=== PATIENT | male | born 1985 | race Caucasian/White ===

== ENCOUNTER 2021-11-05 16:13 | Observation (INO) ==
[2021-11-05 16:38] LABS: Basophils # (auto) 0.02 K/uL (0-0.2); Basophils % (auto) 0.3 %; Eosinophils # (auto) 0.39 K/uL (0-0.5); Eosinophils % (auto) 6.8 %; Hematocrit (blood only) 36.4 % (42-52); Hemoglobin 12.1 g/dL (14.0-18.0); Lymphocytes # (auto) 1.51 K/uL (1.2-3.4); Lymphocytes % (auto) 26.2 %; Mean Corpuscular Hemoglobin 28.9 pg (25-34); Mean Corpuscular Hgb Conc 33.2 g/dL (32-36); Mean Corpuscular Volume 86.9 fL (80-100); Mean Platelet Volume 10.9 fL (7.4-10.4); Monocytes # (auto) 0.56 K/uL (0.11-0.59); Monocytes % (auto) 9.7 %; Neutrophils # (auto) 3.28 K/uL (1.4-6.5); Platelet Count 224 K/uL (130-400); RDW Coefficient of Variation 13.1 % (11.5-14.5); RDW Standard Deviation 41.8 fL (36.4-46.3); Red Blood Count 4.19 M/uL (4.7-6.1); White Blood Count 5.76 K/uL (4.8-10.8)
[2021-11-05 17:11] LABS: Albumin Globulin Ratio 1.2 (0.9-2); Albumin Level 3.9 gm/dl (3.4-5.0); BUN Creatinine Ratio 20.8 (10-20); Bilirubin,Total 0.3 mg/dl (0.2-1.0); Calcium 9.2 mg/dl (8.5-10.1); Creatinine Clr Calc Pharmacy 117.4 ml/min; Est GFR (African American) 118.2 ml/min; Globulin 3.3 gm/dl (2.5-4.0); Potassium 3.9 mmol/L (3.5-5.1); Total Protein 7.2 gm/dl (6.0-8.3)
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
[2021-11-05] MEDS ORDERED: PANTOprazole 80 MG in DEXTROSE 5% 100 ML IV STA (18:07)
[2021-11-05 18:59] LABS: Influenza A virus by PCR Negative (Neg); Influenza B virus by PCR Negative (Neg); RSV by PCR Negative (Neg); SARS CoV2 RNA(COVID-19) InHosp NEGATIVE (Negative)
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
[2021-11-05] MEDS ORDERED: ONDANSETRON INJ 2 MG/ML 2 ML VIAL IV PRN (20:56)
[2021-11-05] MEDS: NICOTINE 14 MG/24 HR PATCH TD SCH (22:03)
[2021-11-05] MEDS: CALCIUM CARBONATE 500 MG CHEWABLE TAB PO SCH (22:05)
[2021-11-05] MEDS: busPIRone 5 MG TAB PO SCH (22:05)
[2021-11-05] MEDS: PANTOprazole 40 MG in SYRINGE 0 ML IV SCH (22:06)
[2021-11-05] MEDS ORDERED: LACTATED RINGER'S 1,000 ML IV ONE (22:46)
--- NOTE | 2021-11-05 23:59 | Communication Note ---
Date of Service: November 05, 2021 Made aware by RN of patient nodding off with his head going into his dinner tray. Patient room searched by security due to concerns for substance abuse. A black box containing drug paraphernalia and a bottle containing liquid medicine was found in patient's backpack per RN. Above objects given to security for safe keeping. Patient SBP 80s, pulse rate 40s as per RN. Patient wakes up when she will as per RN. 3.6-second pause noted around 12:45 AM, 11/06. Patient sleeping during event as per RN. AP One-time sinus pause Asymptomatic bradycardia Substance abuse Maintain monitor on/off unit PCU transfer and Cardiology consult if with recurrence of sinus pause Urine tox One to one nursing RN discretion Will relay to AM provider.
[2021-11-06 00:25] LABS: Lyme Ab IgG w/WB Rflx Negative (Negative); Lyme Ab IgM w/WB Rflx Negative (Negative)
[2021-11-06] MEDS: LACTATED RINGER'S 1,000 ML IV SCH ×2 (06:17→19:34)
[2021-11-06 06:53] LABS: Appearance Urine Clear (Clear); Bilirubin Urine Negative (Negative); Blood Urine Negative (Negative); Color Urine Yellow; Glucose Urine UA Negative (Negative); Ketones Urine Negative (Negative); Leukocyte Esterase Urine Negative (Negative); Nitrite Urine Negative (Negative); Protein Urine Negative (Negative); Urobilinogen Urine Negative (Negative)
[2021-11-06 07:30] LABS: Amphetamines+Metham, Urine Pos (Neg); Barbiturates, Urine Neg (Neg); Benzodiazepine, Urine Neg (Neg); Cocaine, Urine Neg (Neg); MDMA (Ecstacy), Urine Pos (Neg); Methadone, Urine Neg (Neg); Opiate, Urine Pos (Neg); Phencyclidine, Urine Neg (Neg)
[2021-11-06 08:23] LABS: Basophils # (auto) 0.02 K/uL (0-0.2); Basophils % (auto) 0.4 %; Eosinophils # (auto) 0.25 K/uL (0-0.5); Eosinophils % (auto) 5.6 %; Hematocrit (blood only) 31.1 % (42-52); Hemoglobin 10.4 g/dL (14.0-18.0); Hemoglobin 10.7 g/dL (14.0-18.0); Lymphocytes # (auto) 1.36 K/uL (1.2-3.4); Lymphocytes % (auto) 30.4 %; Mean Corpuscular Hemoglobin 28.7 pg (25-34); Mean Corpuscular Hemoglobin 29.6 pg (25-34); Mean Corpuscular Hgb Conc 34.4 g/dL (32-36); Mean Corpuscular Volume 85.9 fL (80-100); Mean Corpuscular Volume 86.1 fL (80-100); Mean Platelet Volume 10.4 fL (7.4-10.4); Mean Platelet Volume 10.5 fL (7.4-10.4); Monocytes # (auto) 0.51 K/uL (0.11-0.59); Monocytes % (auto) 11.4 %; Neutrophils # (auto) 2.33 K/uL (1.4-6.5); Neutrophils % (auto) 52.2 %; Platelet Count 187 K/uL (130-400); Platelet Count 189 K/uL (130-400); RDW Coefficient of Variation 13.1 % (11.5-14.5); RDW Standard Deviation 41.6 fL (36.4-46.3); RDW Standard Deviation 41.9 fL (36.4-46.3); Red Blood Count 3.61 M/uL (4.7-6.1); Red Blood Count 3.62 M/uL (4.7-6.1); White Blood Count 4.36 K/uL (4.8-10.8); White Blood Count 4.47 K/uL (4.8-10.8)
[2021-11-06 08:42] LABS: Mean Corpuscular Hgb Conc 33.4 g/dL (32-36)
[2021-11-06] MEDS: CALCIUM CARBONATE 500 MG CHEWABLE TAB PO SCH ×2 (08:48→20:37)
[2021-11-06] MEDS: busPIRone 5 MG TAB PO SCH ×3 (08:49→20:36)
[2021-11-06] MEDS: PANTOprazole 40 MG in SYRINGE 0 ML IV SCH ×2 (08:49→20:32)
[2021-11-06] MEDS: NICOTINE 14 MG/24 HR PATCH TD SCH (08:49)
[2021-11-06] MEDS: BUPRENORPHINE/NALOXONE 8/2 MG TAB SL SCH (08:53)
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
[2021-11-06 09:03] LABS: BUN Creatinine Ratio 17.1 (10-20); Calcium 8.4 mg/dl (8.5-10.1); Creatinine Clr Calc Pharmacy 144.7 ml/min; Est GFR (Non-African American) 118.2 ml/min; Potassium 3.2 mmol/L (3.5-5.1)
[2021-11-06] MEDS ORDERED: POTASSIUM CHLORIDE CRTAB 20 MEQ TABCR PO STA (09:13)
[2021-11-06] MEDS ORDERED: PANTOprazole 40 MG in DEXTROSE 5% 100 ML IV SCH (09:30)
--- NOTE | 2021-11-06 11:23 | Electrocardiogram Report ---
Test Reason : Blood Pressure : / mmHG Vent. Rate : 056 BPM Atrial Rate : 056 BPM P-R Int : 132 ms QRS Dur : 102 ms QT Int : 426 ms P-R-T Axes : 034 057 046 degrees QTc Int : 411 ms Sinus bradycardia Early repolarization Otherwise normal ECG No previous ECGs available Confirmed by Sher Cueto ([id number]) on 11/06/2021 11:22:29 AM Referred By: REFERRED SELF Confirmed By:Sher Cueto
--- NOTE | 2021-11-06 11:29 | Electrocardiogram Report ---
Test Reason : Blood Pressure : / mmHG Vent. Rate : 049 BPM Atrial Rate : 049 BPM P-R Int : 146 ms QRS Dur : 098 ms QT Int : 468 ms P-R-T Axes : 035 045 042 degrees QTc Int : 422 ms Sinus bradycardia Early repolarization Otherwise normal ECG When compared with ECG of 05-NOV-2021 18:06, (unconfirmed) No significant change was found Confirmed by Sher Cueto ([id number]) on 11/06/2021 11:28:41 AM Referred By: REFERRED SELF Confirmed By:Sher Cueto
--- NOTE | 2021-11-06 12:30 | History & Physical Bridge Note ---
Date of Service November 06, 2021 History & Physical Bridge Note I have examined the patient, reviewed the History & Physical and in the interval since the performance of the History & Physical I have noted the following changes of clinical significance: no changes noted. The patient is undergoing upper endoscopy today for a question of coffee-ground emesis. We have discussed the risks to include bleeding, infection, perforation, aspiration and need for follow-up studies.
[2021-11-06] MEDS ORDERED: fentaNYL citrate 100 MCG/2 ML VIAL IV PRN (12:40)
[2021-11-06] MEDS ORDERED: ONDANSETRON INJ 2 MG/ML 2 ML VIAL IV PRN (12:40)
[2021-11-06] MEDS ORDERED: ePHEDrine sulfate 50 MG/ML AMP IV PRN (12:40)
[2021-11-06] MEDS ORDERED: ATROPINE SULFATE 0.1 MG/ML 10ML SYR IV PRN (12:40)
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
[2021-11-06] MEDS ORDERED: LIDOCAINE 2% 2 ML VIAL/AMP(20MG/ML) INFIL ONE (12:59)
[2021-11-06] MEDS ORDERED: PROPOFOL IV EMULSION 10 MG/ML 20 ML VIAL IV ONE (12:59)
[2021-11-06] MEDS ORDERED: MIDAZOLAM HCL 1 MG/ML 2ML VIAL ONE (13:00)
[2021-11-06] MEDS ORDERED: KETAMINE 50 MG/5 ML SYRINGE ONE (13:00)
[2021-11-06] MEDS ORDERED: fentaNYL citrate 100 MCG/2 ML VIAL ONE (13:00)
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
--- NOTE | 2021-11-06 13:39 | Post Operative Brief Note ---
Immediate Post Op Note v1 Date of Surgery November 06, 2021 Pre & Post Diagnosis Operation Date: 11/06/21 11:40 Pre-Op Diagnosis: GI BLEED Post-Op Diagnosis: Hiatal hernia esophagitis I identified the patient and participated in the time-out.: Yes Procedure Operation Date: 11/06/21 11:40 Actual Procedures p Esophagogastroduodenoscopy(Not Applicable) - Bonifacio Garzon DO Operation Date: 11/06/21 15:30 <No data on this case meets the specified criteria> Surgeon Bonifacio Garzon DO Adjunct Instructor Of Women'S Studies none Estimated Blood Loss 0 Findings Consistent with Post-Op Diagnosis
--- NOTE | 2021-11-06 13:43 | GI REPORT ---
Patient Name: Nabil Juarez Procedure Date: 11/06/2021 12:38 PM Date of : 1985 Admit Type: Inpatient Age: 36 Gender: Male Attending MD: Bonifacio Garzon DO Procedure: Upper GI endoscopy Providers: Bonifacio Garzon DO Referring MD: Servando Chou Md Indications: Coffee-ground emesis Medicines: Monitored Anesthesia Care Complications: No immediate complications. Estimated blood loss: Minimal. Estimated Blood Loss: Estimated blood loss was minimal. Procedure: Pre-Anesthesia Assessment: - Prior to the procedure, a History and Physical was performed, and patient medications, allergies and sensitivities were reviewed. The patient's tolerance of previous anesthesia was reviewed. - The risks and benefits of the procedure and the sedation options and risks were discussed with the patient. All questions were answered and informed consent was obtained. - Patient identification and proposed procedure were verified prior to the procedure by the physician, the nurse and the supervisor core shop. The procedure was verified in the procedure room. - Pre-procedure physical examination revealed no contraindications to sedation. - ASA Grade Assessment: III - A patient with severe systemic disease. - After reviewing the risks and benefits, the patient was deemed in satisfactory condition to undergo the procedure. - The anesthesia plan was to use monitored anesthesia care (MAC). - Immediately prior to administration of medications, the patient was re-assessed for adequacy to receive sedatives. - The heart rate, respiratory rate, oxygen saturations, blood pressure, adequacy of pulmonary ventilation, and response to care were monitored throughout the procedure. - The physical status of the patient was re-assessed after the procedure. After obtaining informed consent, the endoscope was passed under direct vision. Throughout the procedure, the patient's blood pressure, pulse, and oxygen saturations were monitored continuously. The Endoscope was introduced through the mouth, and advanced to the third part of duodenum. The upper GI endoscopy was accomplished without difficulty. The patient tolerated the procedure well. Findings: LA Grade B (one or more mucosal breaks greater than 5 mm, not extending between the tops of two mucosal folds) esophagitis with no bleeding was found in the lower third of the esophagus. A medium-sized hiatal hernia was found. The proximal extent of the gastric folds (end of tubular esophagus) was 36 cm from the incisors. The hiatal narrowing was 41 cm from the incisors. The Z-line was 36 cm from the incisors. The gastric fundus, gastric body, incisura and gastric antrum were normal. The examined duodenum was normal. Impression: - LA Grade B reflux esophagitis. - Medium-sized hiatal hernia. - Normal gastric fundus, gastric body, incisura and antrum. - Normal examined duodenum. - No specimens collected. Recommendation: - Advance diet as tolerated today. - Use Protonix (pantoprazole) 40 mg PO daily. - Repeat upper endoscopy in 3 months for surveillance. Bonifacio Garzon D.O. Bonifacio Garzon, 11/06/2021 1:43:04 PM This report has been signed electronically. Note Initiated On: 11/06/2021 12:38 PM Number of Addenda: 0 I attest to the content of the Intraoperative Record and orders documented therein, exceptions below {[id number]}
--- NOTE | 2021-11-06 14:06 | Hospitalist Progress Note ---
Date of Service November 06, 2021 Assessment & Plan (1) Tobacco use: (2) Opioid abuse: (3) Anxiety and depression: (4) GERD (gastroesophageal reflux disease): (5) Epigastric abdominal pain: Plan: 36 year old male who presented to the ED with coffee ground emesis Coffee ground emesis due to reflux esophagitis- No more since admission. S/p EGD today which showed grade B reflux esophagitis but normal stomach and duodenum. GI recommendations noted. Advance diet as tolerated, PPI daily, repeat EGD in 3 months Sinus bradycardia with pause x1- resolved, in setting of substance abuse. Seen by cardio- no further testing indicated this time Substance abuse- On suboxone but UDS positive for ecstasy, amphetamine and opiates- patient denies use of ecstasy or amphetamine despite revealing his UDS. Of note, patient was found to have a black box containing drug paraphernalia and a bottle with liquid medicine, in the room overnight Tobacco abuse- cessation recommended. continue nicotine patch Anxiety/depression- continue buspirone Dispo- Likely discharge tomorrow DVT prophylaxis- sc heparin Admission and Anticipated Discharge Date Admission Date: November 05, 2021 Subjective Seen and examined at bedside. Sleeping but easily arousable. Awake alert oriented, conversing well. States no more nausea, vomiting since admission, no bleeding. States he takes opiate but denies any ecstasy or amphetamine use despite his UDS being positive, he says his opiates might have been contaminated. No fever, chills. No chest pain, light headedness or dizziness. Physical Exam Physical Exam: General: Lying comfortably in bed, not in distress, on room air HEENT: EOMI, TODD, MMM Chest: Clear breath sounds bilaterally, no wheezes or crackles CVS: Regular rate and rhythm, normal heart sounds, no murmur Abdomen: Soft, non tender, not distended, normal bowel sounds Neuro: Awake, alert, oriented, conversing well, non focal Extremities: No cyanosis, clubbing or edema Results & Data Results & Data ([facility]) Vital Signs (Past 12 Hours) Vital Signs Temp Pulse Pulse Pulse Resp BP BP 11/06/21 13:45 36.7 C 84 13 111/71 11/06/21 13:35 74 19 106/68 11/06/21 13:25 36.5 C 84 14 109/66 11/06/21 12:27 36.8 C 78 20 106/62 11/06/21 11:24 36.7 C 85 18 108/62 11/06/21 08:04 43 L 11/06/21 07:27 36.7 C 86 18 94/57 L 11/06/21 04:08 46 L 76/36 L 91/42 L 11/06/21 02:26 36.7 C 42 L 18 82/47 L Pulse Ox 11/06/21 13:45 100 11/06/21 13:35 100 11/06/21 13:25 98 11/06/21 12:27 96 11/06/21 11:24 98 11/06/21 08:04 11/06/21 07:27 97 11/06/21 04:08 11/06/21 02:26 96
--- NOTE | 2021-11-06 14:28 | Anesthesiology Progress Note ---
Date of Service November 06, 2021 Anesthesia Post Procedure Vital Signs Vital Signs: Temp Pulse Pulse Pulse Resp BP BP 11/06/21 14:00 75 21 106/67 11/06/21 13:45 98.1 F 84 13 111/71 11/06/21 13:35 74 19 106/68 11/06/21 13:25 97.7 F 84 14 109/66 11/06/21 12:27 98.2 F 78 20 106/62 11/06/21 11:24 98.1 F 85 18 108/62 11/06/21 08:04 43 L 11/06/21 07:27 98.1 F 86 18 94/57 L 11/06/21 04:08 46 L 76/36 L 11/06/21 02:26 98.1 F 42 L 18 11/06/21 00:52 45 L 11/05/21 22:46 97.9 F 46 L 18 11/05/21 21:59 97.9 F 54 L 18 11/05/21 21:21 97.9 F 54 L 20 11/05/21 20:56 60 11/05/21 20:41 59 L 16 97/59 L 11/05/21 19:55 59 L 16 11/05/21 18:14 55 L 16 11/05/21 16:16 97.7 F 69 20 98/51 L BP Pulse Ox 11/06/21 14:00 96 11/06/21 13:45 100 11/06/21 13:35 100 11/06/21 13:25 98 11/06/21 12:27 96 11/06/21 11:24 98 11/06/21 08:04 11/06/21 07:27 97 11/06/21 04:08 91/42 L 11/06/21 02:26 82/47 L 96 11/06/21 00:52 11/05/21 22:46 89/55 L 93 11/05/21 21:59 94/58 L 97 11/05/21 21:21 94/58 L 97 11/05/21 20:56 11/05/21 20:41 95 11/05/21 19:55 97/59 L 95 11/05/21 18:14 96/58 L 94 11/05/21 16:16 95 Transfer of Care Handoff Completed per policy Notes Mental Status: alert / awake / arousable and participated in evaluation Patient Amnestic to Procedure: Yes Nausea / Vomiting: adequately controlled Pain: adequately controlled Airway Patency, RR, SpO2: stable & adequate BP & HR: stable & adequate Hydration State: stable & adequate Anesthetic Complications: no major complications apparent and Pt Satisfied with anesthetic care
--- NOTE | 2021-11-06 15:05 | Communication Note ---
Date of Service: November 06, 2021 The patient underwent an upper endoscopy this afternoon. He was found to have a 5 cm hiatal hernia and evidence of esophagitis. I wonder if the coffee-ground emesis is related to drug-induced nausea and vomiting. Recommendations Protonix 40 mg 1 time daily Patient should consider abstinence from drug abuse Repeat upper endoscopy in 3 months Call with any questions or concerns GI to sign off
[2021-11-06] MEDS: HEPARIN SOD 5,000 UNIT/0.5 ML VIAL SQ SCH (20:32)
[2021-11-07 08:17] LABS: Hematocrit (blood only) 36.5 % (42-52); Hemoglobin 12.4 g/dL (14.0-18.0)
[2021-11-07 08:34] LABS: BUN Creatinine Ratio 12.5 (10-20); Calcium 8.5 mg/dl (8.5-10.1); Creatinine Clr Calc Pharmacy 152.3 ml/min; Est GFR (African American) 140.1 ml/min; Est GFR (Non-African American) 120.9 ml/min; Potassium 3.8 mmol/L (3.5-5.1)
[2021-11-07] MEDS: busPIRone 5 MG TAB PO SCH ×3 (09:03→20:09)
[2021-11-07] MEDS: NICOTINE 14 MG/24 HR PATCH TD SCH (09:04)
[2021-11-07] MEDS: CALCIUM CARBONATE 500 MG CHEWABLE TAB PO SCH ×2 (09:04→20:10)
[2021-11-07] MEDS: HEPARIN SOD 5,000 UNIT/0.5 ML VIAL SQ SCH ×2 (09:04→20:10)
[2021-11-07] MEDS: LACTATED RINGER'S 1,000 ML IV SCH ×2 (09:05→20:10)
[2021-11-07] MEDS: BUPRENORPHINE/NALOXONE 8/2 MG TAB SL SCH (09:11)
[2021-11-07] MEDS: PANTOprazole 40 MG TAB PO SCH (09:23)
--- NOTE | 2021-11-07 11:58 | Hospitalist Progress Note ---
Date of Service November 07, 2021 Assessment & Plan (1) Coffee ground emesis: (2) Reflux esophagitis: (3) Opioid abuse: (4) Tobacco use: (5) Anxiety and depression: Plan: 36 year old male with substance abuse who presented to the ED with coffee ground emesis and is s/p EGD. Coffee ground emesis due to reflux esophagitis v/s from vomiting due to substance abuse- No more since admission. Hb has remained stable. S/p EGD 11/06 which showed grade B reflux esophagitis but normal stomach and duodenum. GI recommendations noted. Advance diet, PPI daily, repeat EGD in 3 months. Relayed this to patient at bedside Sinus bradycardia with pause x1- resolved, in setting of substance abuse. Seen by cardio- no further testing indicated this time Substance abuse- On suboxone but UDS positive for ecstasy, amphetamine and opiates. Patient admits to opiate abuse with iv heroine, street percocet etc but denies any cocaine, amphetamine or other substance. He is currently undergoing minor withdrawal but denies any additional help. He did not want inpatient rehab but interested in outpatient resources, CM will provide that. His UDS is positive for opiates, ecstasy and amphetamine but he only admits to opiate and states his opiate might have been contaminated. Of note, patient was found to have a black box containing drug paraphernalia and a bottle with liquid medicine, in the room overnight Tobacco abuse- cessation recommended. continue nicotine patch Anxiety/depression- continue buspirone Hypokalemia- resolved. Dispo- Likely discharge tomorrow. Patient experiencing minor withdrawal today. DVT prophylaxis- sc heparin Admission and Anticipated Discharge Date Admission Date: November 05, 2021 Subjective Seen and examined at bedside. States he is going through minor withdrawal but did not want any additional help. States he uses iv heroine as well as other street opiates like percocet but denies any use of cocaine, amphetamine or other substance. States last use was iv heroine couple days prior to admission. Discussed about abstinence and resources we can help with. He doesnot want inpatient rehab but is interested in outpatient resources. Discussed with case management to provide him the resources. He also uses suboxone which is prescribed to him and has enough pills at home. He is tolerating clears well without issues. No more nausea, vomiting or blood. Passing gas. No diarrhea. He does not feel well enough to get discharged today. He lives with his grandma in her house. Physical Exam Physical Exam: General: Lying comfortably in bed, not in acute distress, on room air HEENT: EOMI, TODD, MMM Chest: Clear breath sounds bilaterally, no wheezes or crackles CVS: Regular rate and rhythm, normal heart sounds, no murmur Abdomen: Soft, non tender, not distended, normal bowel sounds Neuro: Awake, alert, oriented, conversing well, non focal Extremities: No cyanosis, clubbing or edema Results & Data Results & Data ([facility]) Vital Signs (Past 12 Hours) Vital Signs Temp Pulse Pulse Resp BP Pulse Ox 11/07/21 11:30 36.7 C 77 18 101/56 L 97 11/07/21 08:02 61 11/07/21 08:01 36.7 C 80 18 94/57 L 98 11/07/21 04:49 81 18 99/61 L 98
[2021-11-08] MEDS: BUPRENORPHINE/NALOXONE 8/2 MG TAB SL SCH (09:04)
[2021-11-08] MEDS: busPIRone 5 MG TAB PO SCH ×2 (09:05→14:31)
[2021-11-08] MEDS: PANTOprazole 40 MG TAB PO SCH (09:06)
[2021-11-08] MEDS: CALCIUM CARBONATE 500 MG CHEWABLE TAB PO SCH (09:06)
[2021-11-08] MEDS: NICOTINE 14 MG/24 HR PATCH TD SCH (09:06)
[2021-11-08] MEDS: HEPARIN SOD 5,000 UNIT/0.5 ML VIAL SQ SCH (09:07)
[2021-11-08] MEDS: LACTATED RINGER'S 1,000 ML IV SCH (09:15)
--- NOTE | 2021-11-08 14:06 | Discharge Summary ---
Date of Service November 08, 2021 Admission HPI Per Admitting Provider Patient is 36-year-old male with PMH anxiety, depression, ADHD, tobacco use presented to ER with complaint of epigastric discomfort x 2 months. Patient reports 2 months ago started with epigastric burning that radiates up to his throat, it is worse at night and awakens him from sleep. Also reports episodes of vomiting black flecks. He reports this is occurred approximately 19 times over the past 2 months, becoming more frequent past couple of weeks. He reports last episode was last night. Also reports approximately 5 episodes of red blood mixed in with stool over the past couple of months. He states 2 months ago went to an urgent care and was given omeprazole once a day. Patient states he felt like that initially helped some however symptoms have worsened. He also reports he tried cutting out spicy foods, acidic foods. Patient denies aspirin, NSAID use. Patient denies alcohol use. He reports that he drinks 4 times a year drinking 4 drinks at a time. Denies history of endoscopy or colonoscopy. Reports followed up with PCP 1 week ago and was to be set up with GI to have endoscopy however has not been set up yet. He states at PCP visit had temperature of 101F and had scratchy throat. He reports had fever for 1 day and no further fevers. He reports sore throat has improved. Denies chills, diaphoresis, BECK, dizziness, syncope, vision changes, neck pain, CP, SOB, orthopnea, palpitations, cough, sore throat, choking, otalgia, rhinorrhea, paresthesias, weakness, extremity weakness, extremity edema, rashes, urinary symptoms. In ER patient afebrile, BP 98/51, no leukocytosis, Hgb: 12.1. In ER given IV Protonix. Admission Exam Per Admitting Provider General: no distress, WDWN Head: normocephalic, atraumatic Eyes: PERRL, EOM's intact, conjunctiva non-injected, anicteric ENT: normal inspection external ears, nose, mucous membranes moist Neck: supple, trachea midline Lungs: clear, no respiratory distress, no wheezing/rhonchi/rales CV: RRR, no murmur, no pretibial edema Abd: normal BS, soft, non-tender Ext: no cyanosis, no calf tenderness Neuro: A&O x 3, no focal deficits noted, normal affect Skin: warm, dry Principal Diagnosis Reflux esophagitis with coffee ground emesis, substance abuse Discharge Exam General: Lying comfortably in bed, not in distress, on room air HEENT: EOMI, TODD, MMM Chest: Clear breath sounds bilaterally, no wheezes or crackles CVS: Regular rate and rhythm, normal heart sounds, no murmur Abdomen: Soft, non tender, not distended, normal bowel sounds Neuro: Awake, alert, oriented, conversing well, non focal Extremities: No cyanosis, clubbing or edema Discharge Data Allergies Allergy/AdvReac Type Severity Reaction Status Date / Time No Known Allergies Allergy Unverified 11/06/21 08:00 [id number] Allergy Unknown Uncoded 11/06/21 08:00 LATEX-NO Allergy Unknown DENIES Uncoded 11/06/21 08:00 LATEX ALLERGY Consultations 11/05/21 18:26 ED Decision to Admit Stat 11/06/21 08:00 Consult Gastroenterology Routine 11/06/21 11:52 Consult Cardiology Routine Procedures Performed Operation Date: 11/06/21 11:40 Actual Procedures p Esophagogastroduodenoscopy(Not Applicable) - Bonifacio Garzon DO Operation Date: 11/06/21 15:30 <No data on this case meets the specified criteria> Hospital Course (1) Coffee ground emesis: (2) Reflux esophagitis: (3) Opioid abuse: (4) Tobacco use: (5) Anxiety and depression: 36 year old male with substance abuse who presented to the ED with coffee ground emesis and is s/p EGD which showed reflux esophagitis Coffee ground emesis due to reflux esophagitis v/s from vomiting due to substance abuse- No more since admission. Hb has remained stable. S/p EGD 11/06 which showed grade B reflux esophagitis but normal stomach and duodenum. GI recommendations noted. Tolerating diet well. Recommended to increase his prilosec to bid for now, plan for repeat EGD in 3 months. Relayed this to patient at bedside Sinus bradycardia with pause x1- resolved, in setting of substance abuse. Seen by cardio- no further testing indicated this time Substance abuse- On chronic suboxone but UDS positive for ecstasy, amphetamine and opiates. Patient admits to opiate abuse with iv heroine, street percocet etc but denies any cocaine, amphetamine or other substance. He is currently undergoing minor withdrawal but denies any additional help. He did not want inpatient rehab but interested in outpatient resources which was provided by [facility]. His UDS is positive for opiates, ecstasy and amphetamine but he only admits to opiate and states his opiate might have been contaminated. Of note, patient was found to have a black box containing drug paraphernalia and a bottle with liquid medicine, in the room during admission. Reinforce again on cessation of drug abuse at time of discharge. His minor withdrawal symptoms have resolved and he is already on suboxone. On chronic suboxone which he gets from Dr Bai in [facility] in [place]. States he has enough pills at home. Tobacco abuse- cessation recommended. Anxiety/depression- continue buspirone Total Time Total Time Spent Total Time Spent (In Minutes): 31 Discharge Plan Discharge Items Patient Disposition: Home - Self-Care Reason For Visit: GI BLEED Discharge Diagnosis: Reflux esophagitis with coffee ground emesis; substance abuse Activity: Resume your previous activity Non-emergency contact: Primary Care Provider Call non-emergency contact if: you have any medication questions, your symptoms worsen and your pain is concerning for you Follow-up/Referrals: Yves Estrada MD [Outside Practitioners] - (Date & Time 11/12/2021 3:20 PM Provider Yves Estrada MD Department [facility] ) Diet: Regular Addtl Attending Provider Instructions: PLEASE STOP USING DRUGS COMPLETELY. You have inflammation of your esophagus due to acid reflux, recommend increasing your omeprazole to twice daily for now. Follow up with GI in 3 months for repeat endoscopy to ensure it is healed. Pending Studies at Discharge: No Stand-Alone Forms: My [facility] [employer], Smoking Cessation Medications and DC Order Prescriptions: Continued sucralfate 1 gram tablet 1 g PO TID RF: 0 buspirone 10 mg tablet 10 mg PO TID RF: 0 buprenorphine-naloxone 8-2 mg film 2 film sublingual DAILY RF: 0 Changed omeprazole 40 mg capsule,delayed release(DR/EC) 40 mg PO BID Qty: 60 RF: 0 Discharge Orders: Discharge Order (Routine); Ordered 11/08/21 Ordered By: Ray Landin Admission Data Admit Date/Time: 11/05/21 18:33 Attending Provider: Ray Landin Admit Provider: Servando Chou Primary Care Provider: PCP,NO Other Providers: Servando Chou ; Bonifacio Garzon ; Pete Herndon ; Georges Mcgill ; Josue Humphries ; Jovi Prieto ; Markell Yap. ; Franklin Tai ; Megha Colvin ; Mallory Jenkins ; Domi Franklin. ; Fabiano Kennedy
[2021-11-10 17:26] LABS: Amphetamine Urine, Confirm 1290 ng/mL (<250); Codeine Urine NEGATIVE ng/mL (<50); Hydrocodone Urine NEGATIVE ng/mL (<50); Hydromor Urine NEGATIVE ng/mL (<50); MDA negative; MDEA negative; MDMA (Ecstasy) Urine, Confirm negative; Methamphetamine, Ur Confirm 6380 ng/mL (<250); Morphine Urine 5380 ng/mL (<50); Norhydrocodone Conf Ur NEGATIVE ng/mL (<50); Noroxycodone Urine NEGATIVE ng/mL (<50); Oxycodone Urine NEGATIVE ng/mL (<50); Oxymorph Urine NEGATIVE ng/mL (<50)
== END 2021-11-08 18:27 | disposition home or self-care (01) ==
LOC: ED 16:13 → 2W 16:13 → SUATTDRO 18:33 → MERGE 18:33 → 2W 20:41
DX: R00.0 Tachycardia, unspecified; Z91.040 Latex allergy status; K21.00 Gastro-esophageal reflux disease with esophagitis, without bleeding; F32.9 Major depressive disorder, single episode, unspecified; Z72.0 Tobacco use; F17.290 Nicotine dependence, other tobacco product, uncomplicated; F41.9 Anxiety disorder, unspecified; K44.9 Diaphragmatic hernia without obstruction or gangrene; F11.10 Opioid abuse, uncomplicated; K92.0 Hematemesis